=== PATIENT | male | born 1970 | race Caucasian/White ===

== ENCOUNTER → 2018-06-09 | Outpatient (CLI) | payer OTHER ==
--- NOTE | 2018-06-09 09:26 | CT ---
EXAMINATION TYPE: CT chest wo con DATE OF EXAM: 06/09/2018 COMPARISON: Chest x-ray 05/11/2014 HISTORY: Shortness of breath, difficulty breathing CT DLP: 554.4 mGycm. Automated Exposure Control for Dose Reduction was Utilized. TECHNIQUE: CT scan of the thorax is performed without IV contrast. FINDINGS: LUNGS: The lungs are remarkable for some mild basilar groundglass opacity bilaterally., there is no c oncerning parenchymal mass or nodule identified. There is no pleural effusion or pneumothorax seen. The tracheobronchial tree is patent. MEDIASTINUM: Lack of IV contrast is noted to limit evaluation for mediastinal and especially hilar ad enopathy. There are no definitive greater than 1 cm hilar or mediastinal lymph nodes. No cardiomega ly or pericardial effusion is seen. OTHER: Small hiatal hernia is present. Liver shows low attenuation possibly due to fatty infiltration . IMPRESSION: Consider hypersensitivity pneumonitis, pulmonary consult. Noncontrast exam. Additional fi ndings above.
== END | disposition home or self-care (01) ==
LOC: RADCTMAIN 07:34
DX: R06.02 Shortness of breath (principal); K44.9 Diaphragmatic hernia without obstruction or gangrene
CPT/HCPCS: 71250

== ENCOUNTER 2018-08-25 06:47 | Day surgery (SDC) | payer OTHER ==
[2018-08-22 12:53] VITALS: BMI 31.5
[~2018-08-25 06:47] MED LIST: LACTATED RINGERS 1,000 ML IV SCH
[2018-08-25] MEDS ORDERED: LACTATED RINGERS 1,000 ML IV ONE (07:07)
[2018-08-25 07:20] VITALS: TEMP 98.7
--- NOTE | 2018-08-25 07:58 | P.GSHP ---
History of Present Illness H&P Date: 08/25/18 Chief Complaint: Screening colonoscopy This is a 48-year-old male who presents today for screening colonoscopy. Patient denies any significant GI complaints. Past Medical History Past Medical History: Asthma, GERD/Reflux, Pneumonia, Sleep Apnea/CPAP/BIPAP Additional Past Medical History / Comment(s): LUNG CONDITION - GULF WAR; DEGENERATIVE DISC DISEASE, environmental allergies, hiatal hernia, rectal irritation, arthritis in back, History of Any Multi-Drug Resistant Organisms: None Reported Past Surgical History: No Surgical Hx Reported Additional Past Surgical History / Comment(s): EGD Past Anesthesia/Blood Transfusion Reactions: No Reported Reaction Smoking Status: Never smoker - Past Family History Father Family Medical History: Cancer Medications and Allergies Home Medications Medication Instructions Recorded Confirmed Type Omeprazole [PriLOSEC] 20 mg PO BID 05/11/14 08/25/18 History Budesonide-Formot 160-4.5 Mcg 2 puff INHALATION BID 08/22/18 08/25/18 History [Symbicort 160-4.5 Mcg Inhaler] Melatonin 6 mg PO HS PRN 08/22/18 08/25/18 History Multivitamins, Thera [Multivitamin 1 tab PO DAILY 08/22/18 08/25/18 History (formulary)] Naproxen 500 mg PO HS PRN 08/22/18 08/25/18 History traZODone HCL 50 - 150 mg PO HS PRN 08/22/18 08/25/18 History Allergies Allergy/AdvReac Type Severity Reaction Status Date / Time HAZELNUT Allergy Swelling Uncoded 08/25/18 07:20 Surgical - Exam Vital Signs Temp Pulse Resp BP Pulse Ox 98.7 F 103 H 14 163/112 96 08/25/18 07:14 08/25/18 07:14 08/25/18 07:14 08/25/18 07:14 08/25/18 07:14 - General well developed, well nourished, no distress - Eyes PERRL - ENT normal pinna - Neck no masses - Respiratory normal expansion - Abdomen Abdomen: soft, non tender Assessment and Plan Assessment: We'll perform screening colonoscopy.
[2018-08-25] MEDS ORDERED: LIDOCAINE 1% INJ 10MG/ML (20 ML MDV) ONE (07:59)
[2018-08-25] MEDS ORDERED: PROPOFOL 10 MG/ML 20 ML VIAL IV ONE (07:59)
--- NOTE | 2018-08-25 08:26 | P.OP ---
Date of Procedure: 08/25/18 Preoperative Diagnosis: Screening colonoscopy Postoperative Diagnosis: Rectal polyp Procedure(s) Performed: Colonoscopy Anesthesia: MAC Surgeon: Jimenez Schulte Pathology: other (Rectal polyp) Condition: stable Disposition: PACU Description of Procedure: The patient's placed on the endoscopy table in the lateral position. He received IV sedation. Digital rectal exam was performed which revealed a few internal hemorrhoids. The flexible colonoscope was then placed patient anus and passed throughout the entire colon. Ileocecal valve was visualized. The cecum, ascending colon, transverse colon appeared normal. The descending and sigmoid colon appeared normal. Scope was then brought back the rectum and there was a small sessile polyp seen this removed with a hold forcep. Scope was then brought back withdrawn through the anus and there some minimal internal hemorrhoids seen. Scope was withdrawn for patient.
[2018-08-25 08:30] VITALS: RESP 16
[2018-08-25] MEDS ORDERED: ALBUTEROL NEBULIZED 2.5 MG/3 ML INHALATION STA (08:33)
[2018-08-25 08:55] VITALS: BP 127/82; PULSE 85
== END 2018-08-25 09:24 | disposition home or self-care (01) ==
LOC: ORWHC2ENDO 06:47
PROVIDERS: ATTEND Surgery
DX: Z12.11 Encounter for screening for malignant neoplasm of colon (principal); K62.1 Rectal polyp; K64.8 Other hemorrhoids; J45.909 Unspecified asthma, uncomplicated; K21.9 Gastro-esophageal reflux disease without esophagitis; G47.33 Obstructive sleep apnea (adult) (pediatric); Z99.89 Dependence on other enabling machines and devices; F43.10 Post-traumatic stress disorder, unspecified; Z79.1 Long term (current) use of non-steroidal anti-inflammatories (NSAID); Z79.51 Long term (current) use of inhaled steroids; Z79.899 Other long term (current) drug therapy; Z91.018 Allergy to other foods
CPT/HCPCS: 94640; 88305; 45380; J2001; J2704

== ENCOUNTER 2021-11-26 11:12 | Day surgery (SDC) | payer OTHER ==
[2021-11-25 15:25] VITALS: BMI 32.4
[~2021-11-26 11:12] MED LIST changes: +ALBUTEROL NEB (CONC) 2.5 MG/0.5 ML INHALATION ONE; +ATROPINE SULFATE 0.4 MG/ML 1 ML VIAL IM ONE; +LIDOCAINE 2% (PF) 20 MG/ML 5 ML VIAL INHALATION ONE; +LIDOCAINE VISCOUS 300 MG/15 ML CUP MUCOUS MEM ONE
[2021-11-26] MEDS ORDERED: MIDAZOLAM 2 MG/2 ML VIAL ONE (12:22)
[2021-11-26] MEDS ORDERED: SUCCINYLCHOLINE CHLORIDE 100 MG/5 ML SYR IV ONE (12:22)
[2021-11-26] MEDS ORDERED: fentaNYL (PF) 50 MCG/ML 2 ML AMP ONE (12:22)
[2021-11-26] MEDS ORDERED: ONDANSETRON 4 MG/2 ML VIAL ONE (12:22)
[2021-11-26] MEDS ORDERED: PROPOFOL 10 MG/ML 20 ML VIAL IV ONE (12:22)
[2021-11-26] MEDS ORDERED: LIDOCAINE 2% INJ 20 MG/ML (2 ML VIAL) ONE (12:22)
[2021-11-26 13:04] VITALS: TEMP 97.6
--- NOTE | 2021-11-26 13:07 | FL ---
EXAMINATION TYPE: FL bronchoscopy DATE OF EXAM: 11/26/2021 CLINICAL HISTORY: Abnormal x-ray and CT. TECHNIQUE: Fluoroscopy. COMPARISON: None. FINDINGS: Fluoroscopic guidance was provided during bronchoscopy procedure performed by Dr. Aragon. A total of 72 seconds of fluoroscopic time was utilized during the procedure and 1 spot images was ac quired. Single intraoperative image shows advancement of the bronchoscope into the bronchus intermedi us and catheter advancement into the right lung base. IMPRESSION: As Above.
--- NOTE | 2021-11-26 13:25 | XR ---
EXAMINATION TYPE: XR chest 1V portable DATE OF EXAM: 11/26/2021 COMPARISON: Chest CT June 09, 2018 HISTORY: Bronchoscopy with right sided biopsy. TECHNIQUE: Single AP portable frontal upright view of the chest is obtained. FINDINGS: Low lung volumes are present. There is no focal air space opacity, pleural effusion, or pne umothorax seen. The cardiac silhouette size is within normal limits. The osseous structures are in tact. IMPRESSION: No pneumothorax after bronchoscopy and biopsy.
[2021-11-26 13:43] VITALS: RESP 18
--- NOTE | 2021-11-26 13:53 | PCN ---
PROCEDURE NOTE PULMONARY/CRITICAL CARE PROCEDURE NOTE: PROCEDURE PERFORMED: Bronchoscopy, airway examination, therapeutic lavage, BAL, brushes right lobe right lower lobe. Transbronchial biopsies right lower lobe and BAL right middle lobe. PREOP DIAGNOSES: Diffuse interstitial lung disease, shortness of breath, cough. POSTOP DIAGNOSES: Diffuse interstitial lung disease, shortness of breath, cough. DESCRIPTION OF PROCEDURE: There was informed consent and universal timeout. The patient's procedure was done in room #1. Anesthesia provided general anesthesia. After the patient was anesthetized, being fully monitored, the bronchoscope was inserted through the bronchoscope adapter connected to the endotracheal tube. We did a thorough evaluation of both lungs including right upper lobe and its 3 segments, right middle lobe and its 2 segments, right lower lobe and its 5 segments, left upper lobe and its 2 segments, lingula and its 2 segments, and left lower lobe and its 4 segments. Next, we focused primarily in the right lower lobe area. Under fluoroscopic guidance, we did brushes in the right lower lobe. Also, under fluoroscopic guidance, we did at least 8 or 9 transbronchial biopsies to the right lower lobe. Finally, we did a BAL in the right middle lobe. About 35 mL of fluid was recovered. The patient tolerated the procedure well. There was minimal bleeding and blood loss. The biopsies and other specimens will be sent to the laboratory for analysis. The patient tolerated the procedure well. The patient was stable throughout the procedure. There was no immediate complication. There was no obvious pneumothorax on fluoro. A formal chest x-ray will be ordered. Before the bronchoscope was removed from the airway, we ensured that there was adequate hemostasis. Finally, the bronchoscope was removed, and the patient will be recovered. Again, the patient was stable throughout the entire procedure. I did have a chance to speak to the patient's father. MMODL / IJN: [id number] /
[2021-11-26 14:00] VITALS: BP 113/79; PULSE 80
== END 2021-11-26 14:18 | disposition home or self-care (01) ==
LOC: ORWHC2ENDO 11:12
PROVIDERS: ATTEND Internal Medicine Critical Care Medicine
DX: J84.89 Other specified interstitial pulmonary diseases (principal); J45.909 Unspecified asthma, uncomplicated; Z79.51 Long term (current) use of inhaled steroids; I10 Essential (primary) hypertension; Z86.16 Personal history of COVID-19; K21.9 Gastro-esophageal reflux disease without esophagitis; G47.30 Sleep apnea, unspecified; F41.9 Anxiety disorder, unspecified
CPT/HCPCS: 31628; 88104; 88108; 88305; 71045; 31625; 31623; 31624; J2250; J2405; J3010; J0330; J2704; J2001; 31622

== ENCOUNTER 2023-05-09 14:14 | Day surgery (SDC) | payer BC, OTHER ==
[2023-05-06 08:48] VITALS: BMI 30.8
[~2023-05-09 14:14] MED LIST changes: -ALBUTEROL NEB (CONC) 2.5 MG/0.5 ML INHALATION ONE; -ATROPINE SULFATE 0.4 MG/ML 1 ML VIAL IM ONE; -LACTATED RINGERS 1,000 ML IV SCH; +LIDOCAINE 1% (10MG/ML) FOR IV START INTRADERMA PRN; -LIDOCAINE 2% (PF) 20 MG/ML 5 ML VIAL INHALATION ONE; -LIDOCAINE VISCOUS 300 MG/15 ML CUP MUCOUS MEM ONE
[2023-05-09 14:49] VITALS: RESP 16; TEMP 98.3
[2023-05-09] MEDS: LACTATED RINGERS 1,000 ML IV SCH ×2 (14:52→15:49)
--- NOTE | 2023-05-09 15:04 | P.GSHP ---
History of Present Illness H&P Date: 05/09/23 Chief Complaint: Nausea, abdominal pain, diarrhea This a 53-year-old female who presents today for EGD and colonoscopy. Patient complaints of nausea, vomiting and diarrhea. Past Medical History Past Medical History: Asthma, GERD/Reflux, Hypertension, Pneumonia, Sleep Apnea/CPAP/BIPAP Additional Past Medical History / Comment(s): Lung Condition - in [place]; hx anemia., DDD, NT hands/feet often, environmental allergies, hiatal hernia, rectal irritation, arthritis in back, uses CPAP. Hx Covid x3, tinnitus History of Any Multi-Drug Resistant Organisms: None Reported Past Surgical History: No Surgical Hx Reported Additional Past Surgical History / Comment(s): EGD, Colonoscopy Past Anesthesia/Blood Transfusion Reactions: No Reported Reaction Past Psychological History: Anxiety, Depression, PTSD Smoking Status: Never smoker Past Alcohol Use History: Daily Additional Past Alcohol Use History / Comment(s): drinks a couple beers daily and has been drinking whiskey also. Past Drug Use History: None Reported - Past Family History Father Family Medical History: Cancer Additional Family Medical History / Comment(s): pancreas cancer; skin cancer Medications and Allergies Home Medications Medication Instructions Recorded Confirmed Type Omeprazole 40 mg PO DAILY 05/06/23 05/06/23 History amLODIPine [Norvasc] 5 mg PO DAILY 05/06/23 05/06/23 History Allergies Allergy/AdvReac Type Severity Reaction Status Date / Time HAZELNUT Allergy Swelling Uncoded 05/09/23 14:32 Surgical - Exam Vital Signs Temp Pulse Resp BP Pulse Ox 98.3 F 97 16 155/92 96 05/09/23 14:38 05/09/23 14:38 05/09/23 14:38 05/09/23 14:38 05/09/23 14:38 - General well developed, well nourished, no distress - Eyes PERRL - ENT normal pinna - Neck no masses - Respiratory normal expansion - Cardiovascular Rhythm: regular - Abdomen Abdomen: soft, non tender Assessment and Plan Assessment: Nausea, vomiting, diarrhea. We'll perform EGD and colonoscopy.
[2023-05-09] MEDS ORDERED: PROPOFOL 10 MG/ML 20 ML VIAL IV ONE (15:47)
[2023-05-09] MEDS ORDERED: LIDOCAINE 1% INJ 10MG/ML (20 ML MDV) ONE (15:47)
--- NOTE | 2023-05-09 16:06 | P.OP ---
Date of Procedure: 05/09/23 Preoperative Diagnosis: GERD Postoperative Diagnosis: Antral gastritis Sliding hiatal hernia Esophagitis Procedure(s) Performed: EGD Anesthesia: MAC Surgeon: Jimenez Schulte Pathology: other (Antrum, esophagus) Condition: stable Disposition: PACU Description of Procedure: The patient's placed on the endoscopy table in the lateral position. He received IV sedation. The gastro-/oropharynx passed in the esophagus and stomach. Scope was then placed through the pylorus. The first and second portion of the duodenum appeared normal. Scope was then brought back the antrum and this was mildly inflamed. A biopsies performed. Scope was unretroflexed and remainder the stomach appeared normal. The patient had a moderate size sliding hiatal hernia. GE junction was at 38 cm. The distal esophagus appears minimal inflamed. A biopsies performed. The proximal esophagus appeared normal. Scope withdrawn for patient.
[2023-05-09 16:25] VITALS: BP 123/76; PULSE 86
== END 2023-05-09 16:38 | disposition home or self-care (01) ==
LOC: ORWHC2ENDO 14:14
PROVIDERS: ATTEND Surgery
DX: K31.89 Other diseases of stomach and duodenum (principal); K21.00 Gastro-esophageal reflux disease with esophagitis, without bleeding; K29.50 Unspecified chronic gastritis without bleeding; K44.9 Diaphragmatic hernia without obstruction or gangrene; J45.909 Unspecified asthma, uncomplicated; I10 Essential (primary) hypertension; J18.9 Pneumonia, unspecified organism; G47.33 Obstructive sleep apnea (adult) (pediatric); Z86.16 Personal history of COVID-19; F43.10 Post-traumatic stress disorder, unspecified; F32.A Depression, unspecified; F10.90 Alcohol use, unspecified, uncomplicated; Z80.0 Family history of malignant neoplasm of digestive organs; Z80.8 Family history of malignant neoplasm of other organs or systems; Z91.018 Allergy to other foods; Z79.899 Other long term (current) drug therapy
CPT/HCPCS: 88305; 43239; J2001; J2704

== ENCOUNTER 2023-06-06 15:03 | Emergency (ER) | payer BC, OTHER ==
--- NOTE | 2023-06-06 15:49 | ED ---
ENT HPI - General Chief complaint: ENT Stated complaint: left ear pain Time Seen by Provider: 06/06/23 15:23 Source: patient, RN notes reviewed Mode of arrival: ambulatory Limitations: no limitations - History of Present Illness Initial comments: Patient is a 53-year-old male presented ER with chief complaint of left ear pain and drainage. Patient states he stuck a Q-tip in his ear to clean his ears about 5 days ago and saw bright red blood. Patient was seen at urgent care yesterday and prescribed Ciprodex drops, Toradol, and Bactrim. Patient states he has started the Bactrim and Toradol and has not yet started the Ciprodex drops. Patient denies any mastoid tenderness or sinus tenderness. Patient denies any fevers, chills, night sweats. - Related Data Home Medications Medication Instructions Recorded Confirmed Omeprazole 40 mg PO DAILY 05/06/23 05/06/23 amLODIPine [Norvasc] 5 mg PO DAILY 05/06/23 05/06/23 Allergies Allergy/AdvReac Type Severity Reaction Status Date / Time HAZELNUT Allergy Swelling Uncoded 05/09/23 14:32 Review of Systems ROS Statement: Those systems with pertinent positive or pertinent negative responses have been documented in the HPI. ROS Other: All systems not noted in ROS Statement are negative. Past Medical History Past Medical History: Asthma, GERD/Reflux, Hypertension, Pneumonia, Sleep Apnea/CPAP/BIPAP Additional Past Medical History / Comment(s): Lung Condition - in [place]; hx anemia., DDD, NT hands/feet often, environmental allergies, hiatal hernia, rectal irritation, arthritis in back, uses CPAP. Hx Covid x3, tinnitus History of Any Multi-Drug Resistant Organisms: None Reported Past Surgical History: No Surgical Hx Reported Additional Past Surgical History / Comment(s): EGD, Colonoscopy Past Anesthesia/Blood Transfusion Reactions: No Reported Reaction Past Psychological History: Anxiety, Depression, PTSD Smoking Status: Never smoker Past Alcohol Use History: Daily Past Drug Use History: None Reported - Past Family History Father Family Medical History: Cancer Additional Family Medical History / Comment(s): pancreas cancer; skin cancer General Exam Limitations: no limitations General appearance: alert, in no apparent distress ENT exam: Present: normal oropharynx, mucous membranes moist, TM's normal bilaterally (Right is normal, left is unable to be seen due to swelling of the ear canal. purlent drainage in left ear canal, no mastoid process tenderness) Neck exam: Present: normal inspection. Absent: tenderness, meningismus, lymphadenopathy Respiratory exam: Present: normal lung sounds bilaterally. Absent: respiratory distress, wheezes, rales, rhonchi, stridor Cardiovascular Exam: Present: regular rate, normal rhythm, normal heart sounds. Absent: systolic murmur, diastolic murmur, rubs, gallop, clicks Neurological exam: Present: alert, oriented X3, CN II-XII intact Psychiatric exam: Present: normal affect, normal mood Skin exam: Present: warm, dry, intact, normal color. Absent: rash Course Vital Signs 06/06/23 06/06/23 15:19 15:33 Temperature 98.6 F 98.9 F Pulse Rate 97 98 Respiratory 20 Rate Blood Pressure 147/105 146/106 O2 Sat by Pulse 97 97 Oximetry Medical Decision Making - Medical Decision Making Was pt. sent in by a medical professional or institution (, PA, MICROFILM TECHNICIAN, urgent care, hospital, or half-way...) When possible be specific @ -No Did you speak to anyone other than the patient for history (EMS, parent, family, police, friend...)? What history was obtained from this source @ -No Did you review nursing and triage notes (agree or disagree)? Why? @ -I reviewed and agree with nursing and triage notes Were old charts reviewed (outside hosp., previous admission, EMS record, old EKG, old radiological studies, urgent care reports/EKG's, half-way records)? Report findings @ -No old charts were reviewed Differential Diagnosis (chest pain, altered mental status, abdominal pain women, abdominal pain men, vaginal bleeding, weakness, fever, dyspnea, syncope, headache, dizziness, GI bleed, back pain, seizure, CVA, palpatations, mental health, musculoskeletal)? @ -Otitis media, otitis externa, mastoiditis, foreign body, perforated tympanic membrane EKG interpreted by me (3pts min.). @ -None X-rays interpreted by me (1pt min.). @ -None done CT interpreted by me (1pt min.). @ -None done U/S interpreted by me (1pt. min.). @ -None done What testing was considered but not performed or refused? (CT, X-rays, U/S, labs)? Why? @ -None What meds were considered but not given or refused? Why? @ -None Did you discuss the management of the patient with other professionals (professionals i.e. , PA, MICROFILM TECHNICIAN, lab, RT, psych nurse, social and political studies professor, grommet worker, teacher, environmental compliance officer, consumer lending manager)? Give summary @ -No Was smoking cessation discussed for >3mins.? @ -No Was critical care preformed (if so, how long)? @ -No Were there social determinants of health that impacted care today? How? (Homelessness, low income, unemployed, alcoholism, drug addiction, transportation, low edu. Level, literacy, decrease access to med. care, longterm, rehab)? @ -No Was there de-escalation of care discussed even if they declined (Discuss DNR or withdrawal of care, Hospice)? DNR status @ -No What co-morbidities impacted this encounter? (DM, HTN, Smoking, COPD, CAD, Cancer, CVA, ARF, Chemo, Hep., AIDS, mental health diagnosis, sleep apnea, morbid obesity)? @ -None Was patient admitted / discharged? Hospital course, mention meds given and route, prescriptions, significant lab abnormalities, going to OR and other pertinent info. @ -Discharge. Patient is a 53-year-old male presenting to the ER with chief complaint of left ear pain and drainage. Upon examination, patient's vitals are stable. Physical exam was significant for left ear canal erythematous and edematous. There was a white purulent drainage noted in the ear canal. Tympanic membrane was not visualized due to swelling and drainage. No mastoid process tenderness. I discussed with patient that he should start the Ciprodex drops prescribed by urgent care and continued taking Toradol for pain control. I also educated patient on the dangers of using Q-tips in the ear canal. I advised patient to follow-up with ENT if symptoms do not improve. I discussed with patient return parameters. Patient will be discharged in stable condition with follow-up to PCP/ENT. Patient expressed understanding and agreement with care plan. Undiagnosed new problem with uncertain prognosis? @ -No Drug Therapy requiring intensive monitoring for toxicity (Heparin, Nitro, Insulin, Cardizem)? @ -No Were any procedures done? @ -No Diagnosis/symptom? @ -Left otitis externa Acute, or Chronic, or Acute on Chronic? @ -Acute Uncomplicated (without systemic symptoms) or Complicated (systemic symptoms)? @ -Uncomplicated Side effects of treatment? @ -No Exacerbation, Progression, or Severe Exacerbation? @ -No Poses a threat to life or bodily function? How? (Chest pain, [place], [place], pneumonia, PE, COPD, DKA, ARF, appy, cholecystitis, CVA, Diverticulitis, Homicidal, Suicidal, threat to staff... and all critical care pts) @ -Unlikely Disposition Clinical Impression: Otitis externa Disposition: HOME SELF-CARE Condition: Stable Additional Instructions: Please continue Toradol for pain. Please start Ciprodex 4 drops in left ear twice daily. Please return to the Emergency Department if symptoms worsen or any other concerns. Is patient prescribed a controlled substance at d/c from ED?: No Referrals: Justino Medina MD [Primary Care Provider] - 1-2 days Keaton Gamez DO [Doctor of Osteopathic Medicine] - 1-2 days Time of Disposition: 15:49
[2023-06-06 16:06] VITALS: BP 146/106; PULSE 98; RESP 20; TEMP 98.9
== END 2023-06-06 16:05 | disposition home or self-care (01) ==
LOC: EC 15:03
DX: H60.92 Unspecified otitis externa, left ear (principal); I10 Essential (primary) hypertension; J45.909 Unspecified asthma, uncomplicated; K21.9 Gastro-esophageal reflux disease without esophagitis; Z79.899 Other long term (current) drug therapy; Z91.018 Allergy to other foods; Z86.16 Personal history of COVID-19
CPT/HCPCS: 99282

== ENCOUNTER → 2023-09-19 | Outpatient (CLI) | payer BC ==
--- NOTE | 2023-09-19 18:44 | MR ---
MRI brain without contrast. HISTORY: Headaches, blurry vision, dizziness and lightheadedness. COMPARISON: None. TECHNIQUE: Multiecho multiplanar images the brain were obtained without contrast. FINDINGS: On the T1-weighted sagittal images, the midline structures including the craniovertebral junction rel ationships are normal. The ventricles, basal cisterns and sulci over the convexities are within normal limits and there is n o mass effect or shift of the midline structures. No abnormal signal intensity is seen throughout the brain parenchyma. Based on the diffusion-weighted images, there is no diffusion restriction or acute ischemic event. The posterior fossa including the brainstem, fourth ventricle and cerebellar pontine angles appear no rmal. The intraorbital contents appear normal and symmetric. Visualized paranasal sinuses and mastoid air c ells are well aerated. IMPRESSION: No significant abnormality seen.
--- NOTE | 2023-09-19 23:28 | US ---
EXAMINATION TYPE: US carotid duplex BILAT DATE OF EXAM: 09/19/2023 COMPARISON: NONE CLINICAL INDICATION: Male, 53 years old with history of H53.2 DIPLOPIA; Blurred vision, Bilateral fee t and hand numbness, bilateral feet swelling, and EUGENE; Hx HTN. TECHNIQUE: Carotid duplex ultrasound examination. Indirect Doppler criteria was utilized. FINDINGS: EXAM MEASUREMENTS: RIGHT: Peak Systolic Velocity (PSV) cm/sec ----- Right CCA: 62 ----- Right ICA: 90 ----- Right ECA: 61 ICA/CCA ratio: 1.5 RIGHT: End Diastole cm/sec ----- Right CCA: 17 ----- Right ICA: 25 ----- Right ECA: 22 LEFT: Peak Systolic Velocity (PSV) cm/sec ----- Left CCA: 64 ----- Left ICA: 85 ----- Left ECA: 86 ICA/CCA ratio: 1.3 LEFT: End Diastole cm/sec ----- Left CCA: 22 ----- Left ICA: 37 ----- Left ECA: 86 VERTEBRALS (direction of flow): Right Vertebral: Antegrade Left Vertebral: Antegrade Rhythm: Normal KETTLE OPERATOR HEAD NOTES: No intimal thickening, plaque, or elevated velocities seen. High bifurcation with tortuous vessels bilaterally. IMPRESSION: 1. No significant flow-limiting stenosis. Criteria for Assigning % of Stenosis / Diameter reduction (Estimation based on the indirect measurements of the internal carotid artery velocities (ICA PSV). 1. Normal (no stenosis)=ICA PSV < 125 cm/s: ratio < 2.0: ICA EDV<40 cm/s. 2. Less than 50% stenosis=ICA PSV < 125 cm/s: ratio < 2.0: ICA EDV<40 cm/s. 3. 50 to 69% stenosis=ICA PSV of 125 to 230 cm/s: ration 2.0 ? 4.0: ICA EDV 40-100 cm/s. 4. Greater than 70% stenosis to near occlusion= ICA PSV > 230 cm/s: ratio > 4.0: ICA EDV > 100 cm/s. 5. Near occlusion= ICA PSV velocities may be low or undetectable: variable ratio and ICA EDV. 6. Total occlusion=unable to detect flow.
== END | disposition home or self-care (01) ==
LOC: RADUSWWP 16:07
PROVIDERS: ATTEND Family Medicine
DX: H53.2 Diplopia (principal); H53.8 Other visual disturbances; I10 Essential (primary) hypertension; M79.89 Other specified soft tissue disorders; R20.0 Anesthesia of skin; R51.9 Headache, unspecified; R42 Dizziness and giddiness
CPT/HCPCS: 70551; 93880

== ENCOUNTER 2023-11-07 13:59 | Emergency (ER) | payer BC ==
--- NOTE | 2023-11-07 14:38 | ED ---
Abdominal Pain HPI - General Chief Complaint: Abdominal Pain Stated Complaint: R Side Pain Time Seen by Provider: 11/07/23 14:15 Source: patient, RN notes reviewed, old records reviewed Mode of arrival: ambulatory Limitations: no limitations - History of Present Illness Initial Comments: This is a 53-year-old male to the ER for evaluation today. This patient presents today for evaluation regards to abdominal pain severe abdominal pain right-sided abdominal pain right-sided flank pain severe history of kidney stones this does not feel like that history of recently taking gallbladder cleansing pills as well as liver cleansing pills which he thinks may be causing him pain he just super nervous. Patient has no other complaints no chest pain shortness of breath abdominal pain otherwise, no abdominal tenderness. No fevers MD Complaint: abdominal pain, flank pain (Right-sided) -: hour(s) Location: RUQ, R flank Radiation: RUQ, R flank Migration to: no migration Severity scale (1-10): 6 Quality: fullness, sharp Consistency: constant Improves With: nothing Worsens With: nothing Associated Symptoms: nausea Treatments Prior to Arrival: other (0) - Related Data Home Medications Medication Instructions Recorded Confirmed Omeprazole 40 mg PO DAILY 05/06/23 05/06/23 amLODIPine [Norvasc] 5 mg PO DAILY 05/06/23 05/06/23 Previous Rx's Medication Instructions Recorded Azithromycin [Zithromax Z Pack] 0 tab PO DIRECTED #6 tab 11/09/23 Cyclobenzaprine [Flexeril] 10 mg PO TID PRN #15 tab 11/09/23 HYDROcodone/APAP 7.5-325MG [[place] 1 tab PO Q6HR PRN 3 Days #12 tab 11/09/23 7.5-325] predniSONE 50 mg PO DAILY #5 tab 11/09/23 Allergies Allergy/AdvReac Type Severity Reaction Status Date / Time [place] Allergy Swelling Uncoded 05/09/23 14:32 Review of Systems ROS Statement: Those systems with pertinent positive or pertinent negative responses have been documented in the HPI. ROS Other: All systems not noted in ROS Statement are negative. Past Medical History Past Medical History: Asthma, GERD/Reflux, Hypertension, Pneumonia, Sleep Apnea/CPAP/BIPAP Additional Past Medical History / Comment(s): Lung Condition - in [place]; hx anemia., DDD, NT hands/feet often, environmental allergies, hiatal hernia, rectal irritation, arthritis in back, uses CPAP. Hx Covid x3, tinnitus History of Any Multi-Drug Resistant Organisms: None Reported Past Surgical History: No Surgical Hx Reported Additional Past Surgical History / Comment(s): EGD, Colonoscopy Past Anesthesia/Blood Transfusion Reactions: No Reported Reaction Past Psychological History: Anxiety, Depression, PTSD Smoking Status: Never smoker Past Alcohol Use History: Daily Past Drug Use History: None Reported - Past Family History Father Family Medical History: Cancer Additional Family Medical History / Comment(s): pancreas cancer; skin cancer General Exam Limitations: no limitations General appearance: alert, in no apparent distress Head exam: Present: atraumatic, normocephalic, normal inspection Eye exam: Present: normal appearance, PERRL, EOMI. Absent: scleral icterus, conjunctival injection, periorbital swelling ENT exam: Present: normal exam, mucous membranes moist Neck exam: Present: normal inspection. Absent: tenderness, meningismus, lymphadenopathy Respiratory exam: Present: normal lung sounds bilaterally. Absent: respiratory distress, wheezes, rales, rhonchi, stridor Cardiovascular Exam: Present: regular rate, normal rhythm, normal heart sounds. Absent: systolic murmur, diastolic murmur, rubs, gallop, clicks GI/Abdominal exam: Present: soft, normal bowel sounds. Absent: distended, te nderness, guarding, rebound, rigid Extremities exam: Present: normal inspection, full ROM, normal capillary refill. Absent: tenderness, pedal edema, joint swelling, calf tenderness Back exam: Present: normal inspection Neurological exam: Present: alert, oriented X3, CN II-XII intact Psychiatric exam: Present: normal affect, normal mood Skin exam: Present: warm, dry, intact, normal color. Absent: rash Course Vital Signs 11/07/23 11/07/23 11/07/23 14:01 16:14 18:07 Temperature 97.8 F 98.1 F 97.7 F Pulse Rate 86 84 77 Respiratory 16 18 18 Rate Blood Pressure 150/98 135/96 165/109 O2 Sat by Pulse 97 96 97 Oximetry - Reevaluation(s) Reevaluation #1: 11/07/23 17:44 Medical records reviewed Reevaluation #2: 11/07/23 17:44 Patient symptoms unchanged Reevaluation #3: 11/07/23 17:44 Patient informed of results and questions answered Reevaluation #4: Was pt. sent in by a medical professional or institution (, [facility], FIRE REGULATOR, urgent care, hospital, or group home...) When possible be specific @ -no Did you speak to anyone other than the patient for history (EMS, parent, family, police, friend...)? What history was obtained from this source @ -no Did you review nursing and triage notes (agree or disagree)? Why? @ -agree Are old charts reviewed (outside hosp., previous admission, EMS record, old EKG, old radiological studies, urgent care reports/EKG's, group home records)? Report findings @ -yes Differential Diagnosis (chest pain, altered mental status, abdominal pain women, abdominal pain men, vaginal bleeding, weakness, fever, dyspnea, syncope, headache, dizziness, GI bleed, back pain, seizure, CVA, palpatations, mental health, musculoskeletal)? @ -prior EKG interpreted by me (3pts min.). @ -no X-rays interpreted by me (1pt min.). @ -no CT interpreted by me (1pt min.). @ -yes negative for acute disease U/S interpreted by me (1pt. min.). @ -no What testing was considered but not performed or refused? (CT, X-rays, U/S, labs)? Why? @ -none What meds were considered but not given or refused? Why? @ -none Did you discuss the management of the patient with other professionals (professionals i.e. [facility]ANDRIKA Bowman, FIRE REGULATOR, lab, RT, psych nurse, social worker delinquency prevention, compound mixer, teacher, water resources technical officer, case finisher)? Give summary @ -no Was smoking cessation discussed for >3mins.? @ -no Was critical care preformed (if so, how long)? @ -no Were there social determinants of health that impacted care today? How? (Homelessness, low income, unemployed, alcoholism, drug addiction, transportation, low edu. Level, literacy, decrease access to med. care, long-term, rehab)? @ -none Was there de-escalation of care discussed even if they declined (Discuss DNR or withdrawal of care, Hospice)? DNR status @ -no What co-morbidities impacted this encounter? (DM, HTN, Smoking, COPD, CAD, Cancer, CVA, ARF, Chemo, Hep., AIDS, mental health diagnosis, sleep apnea, morbid obesity)? @ -none Was patient admitted / discharged? Hospital course, mention meds given and route, prescriptions, significant lab abnormalities, going to OR and other pertinent info. @ - 53 male nonspecific pain unknown abdominal pain cause. Patient be given pain control and can be discharged home Discharge Undiagnosed new problem with uncertain prognosis? @ -no Drug Therapy requiring intensive monitoring for toxicity (Heparin, Nitro, Insulin, Cardizem)? @ -no Were any procedures done? @ -no Diagnosis/symptom? @ -Abdominal pain NOS Acute, or Chronic, or Acute on Chronic? @ -Acute Uncomplicated (without systemic symptoms) or Complicated (systemic symptoms)? @ -Complicated Side effects of treatment? @ -no Exacerbation, Progression, or Severe Exacerbation? @ -exacerbation Poses a threat to life or bodily function? How? (Chest pain, [place], [place], pneumonia, PE, COPD, DKA, ARF, appy, cholecystitis, CVA, Diverticulitis, Homicidal, Suicidal, threat to staff... and all critical care pts) @ -no Reevaluation #5: Differential Abdominal Pain Men: Appendicitis, cholecystitis, diverticulosis, ischemic bowel, pancreatitis, hepatitis, UTI, gastroenteritis, AAA, incarcerated hernia, bowel obstruction, constipation, inflammatory bowel, hepatitis, peptic ulcer disease, splenic infarction, perforated viscus, testicular torsion, this is not meant to be an all-inclusive list Medical Decision Making - Medical Decision Making 53 male nonspecific pain unknown abdominal pain cause. Patient be given pain control and can be discharged home - Lab Data Result diagrams: 11/07/23 14:46 11/07/23 14:46 Lab Results 11/07/23 11/07/23 11/07/23 Range/Units 14:45 14:46 14:46 WBC 7.2 (3.8-10.6) k/uL RBC 4.70 (4.30-5.90) m/uL Hgb 14.1 (13.0-17.5) gm/dL Hct 44.0 (39.0-53.0) % MCV 93.8 (80.0-100.0) fL MCH 30.0 (25.0-35.0) pg MCHC 31.9 (31.0-37.0) g/dL RDW 12.8 (11.5-15.5) % Plt Count 300 (150-450) k/uL MPV 7.3 Neutrophils % 68 % Lymphocytes % 20 % Monocytes % 7 % Eosinophils % 2 % Basophils % 1 % Neutrophils # 4.9 (1.3-7.7) k/uL Lymphocytes # 1.5 (1.0-4.8) k/uL Monocytes # 0.5 (0-1.0) k/uL Eosinophils # 0.1 (0-0.7) k/uL Basophils # 0.1 (0-0.2) k/uL Sodium 138 (137-145) mmol/L Potassium 4.3 (3.5-5.1) mmol/L Chloride 108 H (98-107) mmol/L Carbon Dioxide 23 (22-30) mmol/L Anion Gap 7 mmol/L BUN 11 (9-20) mg/dL Creatinine 0.77 (0.66-1.25) mg/dL Est GFR (CKD-EPI)AfAm >90 (>60 ml/min/1.73 sqM) Est GFR (CKD-EPI)NonAf >90 (>60 ml/min/1.73 sqM) Glucose 109 H (74-99) mg/dL Calcium 9.5 (8.4-10.2) mg/dL Total Bilirubin 0.7 (0.2-1.3) mg/dL AST 31 (17-59) U/L ALT 48 (4-49) U/L Alkaline Phosphatase 72 (38-126) U/L Total Protein 7.2 (6.3-8.2) g/dL Albumin 4.3 (3.5-5.0) g/dL Amylase 65 (30-110) U/L Lipase 192 (23-300) U/L Urine Color Yellow Urine Appearance Clear (Clear) Urine pH 7.0 (5.0-8.0) Ur Specific Leon 1.024 (1.001-1.035) Urine Protein Negative (Negative) Urine Glucose (UA) Negative (Negative) Urine Ketones Negative (Negative) Urine Blood Negative (Negative) Urine Nitrite Negative (Negative) Urine Bilirubin Negative (Negative) Urine Urobilinogen <2.0 (<2.0) mg/dL Ur Leukocyte Esterase Negative (Negative) - Radiology Data Radiology results: report reviewed (CT of the abdomen and pelvis negative for acute disease), image reviewed Disposition Clinical Impression: Abdominal pain Disposition: HOME SELF-CARE Condition: Good Instructions (If sedation given, give patient instructions): Abdominal Pain (ED) Is patient prescribed a controlled substance at d/c from ED?: No Referrals: Justino Medina MD [Primary Care Provider] - 1-2 days Time of Disposition: 17:45
[2023-11-07] MEDS: SODIUM CHLORIDE 0.9% 1,000 ML IV STA (14:49)
[2023-11-07] MEDS: KETOROLAC 15 MG/ML 1 ML VIAL IVP STA (14:50)
[2023-11-07 14:52] LABS: Basophils # (A) 0.1 k/uL (0-0.2); Basophils % (A) 1 %; Eosinophils # (A) 0.1 k/uL (0-0.7); Eosinophils % (A) 2 %; HGB 14.1 gm/dL (13.0-17.5); Lymphocytes # (A) 1.5 k/uL (1.0-4.8); Lymphocytes % (A) 20 %; MCHC 31.9 g/dL (31.0-37.0); MCV 93.8 fL (80.0-100.0); Mean Platelet Volume 7.3; Monocytes # (A) 0.5 k/uL (0-1.0); Monocytes % (A) 7 %; Neutrophils # (A) 4.9 k/uL (1.3-7.7); Neutrophils % (A) 68 %; Platelet Count 300 k/uL (150-450); RDW 12.8 % (11.5-15.5); WBC 7.2 k/uL (3.8-10.6)
[2023-11-07 15:08] LABS: ALT 48 U/L (4-49); AST 31 U/L (17-59); African American GFR (CKD) >90 (>60 ml/min/1.73 sqM); Albumin 4.3 g/dL (3.5-5.0); Alkaline Phosphatase 72 U/L (38-126); Amylase 65 U/L (30-110); Anion Gap 7 mmol/L; Blood Urea Nitrogen 11 mg/dL (9-20); Calcium 9.5 mg/dL (8.4-10.2); Carbon Dioxide 23 mmol/L (22-30); Chloride 108 mmol/L (98-107); Glucose 109 mg/dL (74-99); Lipase 192 U/L (23-300); Non-African American GFR(CKD) >90 (>60 ml/min/1.73 sqM); Potassium 4.3 mmol/L (3.5-5.1); Sodium 138 mmol/L (137-145); Total Bilirubin 0.7 mg/dL (0.2-1.3); Total Protein 7.2 g/dL (6.3-8.2)
[2023-11-07] MEDS: HYDROmorphone 1 MG/ML 1 ML SYRINGE IVP STA (15:15)
[2023-11-07 16:33] VITALS: RESP 18
--- NOTE | 2023-11-07 17:23 | CT ---
EXAMINATION TYPE: CT abdomen pelvis wo con CT DLP: 1110.7 mGycm, Automated exposure control for dose reduction was used. DATE OF EXAM: 11/07/2023 4:59 PM COMPARISON: 08/17/2010 CLINICAL INDICATION:Male, 53 years old with history of pain; right sided abdominal pain TECHNIQUE: Axial CT abdomen pelvis wo con;Sagittal and coronal reformats were created on a separate workstation. Contrast used: mL of , (none if empty) Oral contrast used: without Oral Contrast (none if empty) FINDINGS: LOWER CHEST: Unremarkable ABDOMEN LIVER: Diffusely hypoattenuating parenchyma. GALLBLADDER AND BILE DUCTS: Unremarkable. PANCREAS: Unremarkable. SPLEEN: Unremarkable. ADRENAL GLANDS: Unremarkable. KIDNEYS AND URETERS: Nonobstructing right 3 mm calculus. No left renal calculi. No left renal calculi or left hydronephrosis. PELVIS BLADDER: High density urine is seen within the bladder lumen. REPRODUCTIVE: Prostate is enlarged in size measuring 4.8 cm in transverse dimension. ABDOMEN & PELVIS STOMACH AND BOWEL: Moderate hiatal hernia. No evidence of bowel obstruction. The appendix is visualized and normal. PERITONEUM/RETROPERITONEUM: No evidence of pneumoperitoneum or free fluid. VASCULATURE: No evidence of aortic aneurysm. MUSCULOSKELETAL: No acute osseous abnormalities LYMPH NODES: No gross evidence for lymphadenopathy. SOFT TISSUE/ABDOMINAL WALL: Bilateral fatty changes to the inguinal canals. Fat-containing umbilical hernia. IMPRESSION: 1. High density material in the bladder lumen correlate with urinalysis. Findings could represent bl ood products. No other acute right-sided process identified. 2. Right nonobstructing renal calculus. 3. Prostatomegaly correlate serum PSA. 4. Bilateral fatty changes to the inguinal canals. 5. Hepatic steatosis 6. Moderate hiatal hernia.
[2023-11-07] MEDS: traMADol 50 MG TAB PO STA (18:05)
[2023-11-07] MEDS: traMADol 50 MG STARTER PACK 3 TAB BTL PO STA (18:06)
[2023-11-07] MEDS: ONDANSETRON 4 MG ODT STARTER PACK 2 TAB BTL PO STA (18:06)
[2023-11-07] MEDS ORDERED: HYDROmorphone 1 MG/ML 1 ML SYRINGE IVP STA (18:14)
[2023-11-07 18:29] LABS: Appearance,Urine Clear (Clear); Bilirubin,Urine Negative (Negative); Blood,Urine Negative (Negative); Color,Urine Yellow; Glucose,Urine (UA) Negative (Negative); Ketones,Urine Negative (Negative); Leukocyte Esterase,Urine Negative (Negative); Nitrite,Urine Negative (Negative); Protein,Urine Negative (Negative); Specific Gravity,Urine 1.024 (1.001-1.035); Urobilinogen,Urine <2.0 mg/dL (<2.0)
[2023-11-07 18:38] VITALS: BP 165/109; PULSE 77; TEMP 97.7
== END 2023-11-07 18:18 | disposition home or self-care (01) ==
LOC: EC 13:59
DX: R10.9 Unspecified abdominal pain (principal); Z91.018 Allergy to other foods
CPT/HCPCS: 36415; 80053; 82150; 83690; 85025; 81003; 74176; 99284; 96374; 96375; 96361; J1170; J1885; S0119

== ENCOUNTER 2023-11-09 08:03 | Emergency (ER) | payer BC ==
[2023-11-09] MEDS: HYDROmorphone 0.5 MG/0.5 ML SYRINGE IVP STA ×2 (08:26→09:15)
[2023-11-09] MEDS: KETOROLAC 15 MG/ML 1 ML VIAL IVP STA (08:30)
[2023-11-09] MEDS: ONDANSETRON 4 MG/2 ML VIAL IVP STA (08:30)
[2023-11-09] MEDS: IPRATROPIUM-ALBUTEROL 3 ML NEB INHALATION STA (08:34)
[2023-11-09] MEDS: ORPHENADRINE 30 MG/ML 2 ML VIAL IVP STA (08:34)
[2023-11-09 08:53] LABS: ALT 41 U/L (4-49); AST 27 U/L (17-59); African American GFR (CKD) >90 (>60 ml/min/1.73 sqM); Albumin 4.4 g/dL (3.5-5.0); Alkaline Phosphatase 80 U/L (38-126); Anion Gap 7 mmol/L; Blood Urea Nitrogen 10 mg/dL (9-20); Calcium 9.8 mg/dL (8.4-10.2); Carbon Dioxide 26 mmol/L (22-30); Chloride 104 mmol/L (98-107); Glucose 125 mg/dL (74-99); Lipase 83 U/L (23-300); Non-African American GFR(CKD) >90 (>60 ml/min/1.73 sqM); Potassium 4.3 mmol/L (3.5-5.1); Sodium 137 mmol/L (137-145); Total Protein 7.3 g/dL (6.3-8.2)
[2023-11-09 08:57] VITALS: RESP 18; TEMP 98.3
[2023-11-09 09:02] LABS: Basophils % (A) 0 %; Eosinophils # (A) 0.1 k/uL (0-0.7); Eosinophils % (A) 2 %; HCT 42.7 % (39.0-53.0); HGB 13.8 gm/dL (13.0-17.5); Lymphocytes # (A) 1.5 k/uL (1.0-4.8); Lymphocytes % (A) 19 %; MCH 30.4 pg (25.0-35.0); MCHC 32.4 g/dL (31.0-37.0); Mean Platelet Volume 7.6; Monocytes # (A) 0.6 k/uL (0-1.0); Monocytes % (A) 8 %; Neutrophils # (A) 5.3 k/uL (1.3-7.7); Neutrophils % (A) 69 %; Platelet Count 313 k/uL (150-450); RBC 4.54 m/uL (4.30-5.90); RDW 12.8 % (11.5-15.5); WBC 7.7 k/uL (3.8-10.6)
[2023-11-09 09:12] LABS: INR 0.9 (<1.2); Partial Thromboplastin Time 25.3 sec (22.0-30.0); Prothrombin Time 10.3 sec (10.0-12.5)
--- NOTE | 2023-11-09 09:20 | XR ---
EXAMINATION TYPE: XR chest 2V DATE OF EXAM: 11/09/2023 9:06 AM CLINICAL INDICATION:Male, 53 years old with history of sob; COMPARISON: Chest radiographs from 11/26/2021 TECHNIQUE: XR chest 2V Frontal and lateral views of the chest. FINDINGS: Lungs/Pleura: There is no evidence of pleural effusion, focal consolidation, or pneumothorax. Pulmonary vascularity: Unremarkable. Heart/mediastinum: Cardiomediastinal silhouette is unremarkable. Musculoskeletal: No acute osseous pathology. IMPRESSION: No acute cardiopulmonary disease/process.
[2023-11-09 09:55] VITALS: PULSE 92
--- NOTE | 2023-11-09 10:04 | US ---
EXAMINATION TYPE: US gallbladder DATE OF EXAM: 11/09/2023 COMPARISON: NONE CLINICAL INDICATION: Male, 53 years old with history of pain; RUQ pain. TECHNIQUE: Multiple sonographic images of the right upper quadrant are obtained. FINDINGS: EXAM MEASUREMENTS: Liver Length: 19.6 cm Gallbladder Wall: .2 cm CBD: .5 cm Right Kidney: 10.7 x 4.9 x 5.7 cm Call Or Contact Centre Manager notes: Exam limited due to body habitus Pancreas: Obscured by bowel gas Liver: Echogenic and attenuating. This secondarily limits assessment for focal lesions. Gallbladder: No stones or abnormal distention. Evidence for sonographic Strickland's sign: No CBD: Limited due to bowel gas. Estimated at 5 mm. Right Kidney: No hydronephrosis or masses seen IMPRESSION: 1. Hepatomegaly at 19.6 cm with severe hepatic steatosis. Appropriate clinical management is advised. 2. No gallstones or biliary ductal dilatation.
--- NOTE | 2023-11-09 10:49 | ED ---
Abdominal Pain HPI - General Chief Complaint: Abdominal Pain Stated Complaint: Rib pain Time Seen by Provider: 11/09/23 08:06 Source: patient, RN notes reviewed Mode of arrival: ambulatory Limitations: no limitations - History of Present Illness Initial Comments: 53-year-old male presents emergency department with chief complaint of right- sided rib pain. Patient states that pain has become more severe since the weekend he was recently seen here CT no acute findings. Patient states that he has spasms, is increasing cough, shortness of breath. Patient states that his cough is productive with phlegm and states that it hurts when it spasms. He has no lower abdominal pain reports fevers, chills patient denies any other associated symptoms. - Related Data Home Medications Medication Instructions Recorded Confirmed Omeprazole 40 mg PO DAILY 05/06/23 05/06/23 amLODIPine [Norvasc] 5 mg PO DAILY 05/06/23 05/06/23 Previous Rx's Medication Instructions Recorded Azithromycin [Zithromax Z Pack] 0 tab PO DIRECTED #6 tab 11/09/23 Cyclobenzaprine [Flexeril] 10 mg PO TID PRN #15 tab 11/09/23 HYDROcodone/APAP 7.5-325MG [[place] 1 tab PO Q6HR PRN 3 Days #12 tab 11/09/23 7.5-325] predniSONE 50 mg PO DAILY #5 tab 11/09/23 Allergies Allergy/AdvReac Type Severity Reaction Status Date / Time [place] Allergy Swelling Uncoded 05/09/23 14:32 Review of Systems ROS Statement: Those systems with pertinent positive or pertinent negative responses have been documented in the HPI. ROS Other: All systems not noted in ROS Statement are negative. Past Medical History Past Medical History: Asthma, GERD/Reflux, Hypertension, Pneumonia, Sleep Apnea/CPAP/BIPAP Additional Past Medical History / Comment(s): Lung Condition - in [place]; hx anemia., DDD, NT hands/feet often, environmental allergies, hiatal hernia, rectal irritation, arthritis in back, uses CPAP. Hx Covid x3, tinnitus History of Any Multi-Drug Resistant Organisms: None Reported Past Surgical History: No Surgical Hx Reported Additional Past Surgical History / Comment(s): EGD, Colonoscopy Past Anesthesia/Blood Transfusion Reactions: No Reported Reaction Past Psychological History: Anxiety, Depression, PTSD Smoking Status: Never smoker Past Alcohol Use History: Daily Past Drug Use History: None Reported - Past Family History Father Family Medical History: Cancer Additional Family Medical History / Comment(s): pancreas cancer; skin cancer General Exam Limitations: no limitations General appearance: alert, in no apparent distress Head exam: Present: atraumatic, normocephalic, normal inspection Eye exam: Present: normal appearance, PERRL, EOMI. Absent: scleral icterus, conjunctival injection, periorbital swelling ENT exam: Present: normal exam, mucous membranes moist Neck exam: Present: normal inspection. Absent: tenderness, meningismus, lymphadenopathy Respiratory exam: Present: wheezes, rhonchi, chest wall tenderness. Absent: normal lung sounds bilaterally, respiratory distress, rales, stridor Cardiovascular Exam: Present: normal rhythm, tachycardia, normal heart sounds. Absent: systolic murmur, diastolic murmur, rubs, gallop, clicks GI/Abdominal exam: Present: soft, tenderness, normal bowel sounds. Absent: distended, guarding, rebound, rigid Course Vital Signs 11/09/23 11/09/23 11/09/23 08:04 08:35 08:44 Temperature 98.3 F Pulse Rate 111 H 93 93 Respiratory 18 Rate Blood Pressure 168/109 O2 Sat by Pulse 96 Oximetry 11/09/23 11/09/23 09:18 11:07 Temperature Pulse Rate 92 92 Respiratory 18 18 Rate Blood Pressure 143/100 148/94 O2 Sat by Pulse 95 96 Oximetry Medical Decision Making - Medical Decision Making Was pt. sent in by a medical professional or institution (, PA, ETL ANALYST, urgent care, hospital, or care home...) When possible be specific @ -No Did you speak to anyone other than the patient for history (EMS, parent, family, police, friend...)? What history was obtained from this source @ -No Did you review nursing and triage notes (agree or disagree)? Why? @ -I reviewed and agree with nursing and triage notes Were old charts reviewed (outside hosp., previous admission, EMS record, old EKG, old radiological studies, urgent care reports/EKG's, care home records)? Report findings @ -Reviewed CT from prior ER visit along with CBC and comp Differential Diagnosis (chest pain, altered mental status, abdominal pain women, abdominal pain men, vaginal bleeding, weakness, fever, dyspnea, syncope, headache, dizziness, GI bleed, back pain, seizure, CVA, palpatations, mental health, musculoskeletal)? @ -Differential Abdominal Pain Men: Appendicitis, cholecystitis, diverticulosis, ischemic bowel, pancreatitis, hepatitis, UTI, gastroenteritis, AAA, incarcerated hernia, bowel obstruction, constipation, inflammatory bowel, hepatitis, peptic ulcer disease, splenic infarction, perforated viscus, testicular torsion, this is not meant to be an all-inclusive list EKG interpreted by me (3pts min.). @ -As above X-rays interpreted by me (1pt min.). @ -Chest x-ray shows mild haziness possible early pneumonia CT interpreted by me (1pt min.). @ -None done U/S interpreted by me (1pt. min.). @ -[Ultrasound gallbladder shows no acute process What testing was considered but not performed or refused? (CT, X-rays, U/S, labs)? Why? @ -None What meds were considered but not given or refused? Why? @ -None Did you discuss the management of the patient with other professionals (professionals i.e. , PA, ETL ANALYST, lab, RT, psych nurse, social psychologist, lawyers, teacher, chief information security officer, watch case polisher)? Give summary @ -No Was smoking cessation discussed for >3mins.? @ -No Was critical care preformed (if so, how long)? @ -No Were there social determinants of health that impacted care today? How? (Homelessness, low income, unemployed, alcoholism, drug addiction, transportation, low edu. Level, literacy, decrease access to med. care, detention, rehab)? @ -No Was there de-escalation of care discussed even if they declined (Discuss DNR or withdrawal of care, Hospice)? DNR status @ -No What co-morbidities impacted this encounter? (DM, HTN, Smoking, COPD, CAD, Cancer, CVA, ARF, Chemo, Hep., AIDS, mental health diagnosis, sleep apnea, morbid obesity)? @ -None Was patient admitted / discharged? Hospital course, mention meds given and route, prescriptions, significant lab abnormalities, going to OR and other pertinent info. @ -Discharge patient does feel improved this time. Patient has concerning signs for early pneumonia patient was given antibiotics, steroids, analgesics. Patient does have right-sided chest wall pain consistent with pleurisy, costochondritis. Patient offered admission patient declines. Undiagnosed new problem with uncertain prognosis? @ -No Drug Therapy requiring intensive monitoring for toxicity (Heparin, Nitro, Insulin, Cardizem)? @ -No Were any procedures done? @ -No Diagnosis/symptom? @ -Pneumonia, costochondritis, pleurisy Acute, or Chronic, or Acute on Chronic? @ -Acute Uncomplicated (without systemic symptoms) or Complicated (systemic symptoms)? @ -Complicated Side effects of treatment? @ -No Exacerbation, Progression, or Severe Exacerbation? @ -No Poses a threat to life or bodily function? How? (Chest pain, [place], [place], pneumonia, PE, COPD, DKA, ARF, appy, cholecystitis, CVA, Diverticulitis, Homicidal, Suicidal, threat to staff... and all critical care pts) @ -No - Lab Data Result diagrams: 11/09/23 08:23 11/09/23 08:23 Lab Results 11/09/23 11/09/23 11/09/23 Range/Units 08:23 08:23 08:23 WBC 7.7 (3.8-10.6) k/uL RBC 4.54 (4.30-5.90) m/uL Hgb 13.8 (13.0-17.5) gm/dL Hct 42.7 (39.0-53.0) % MCV 94.0 (80.0-100.0) fL MCH 30.4 (25.0-35.0) pg MCHC 32.4 (31.0-37.0) g/dL RDW 12.8 (11.5-15.5) % Plt Count 313 (150-450) k/uL MPV 7.6 Neutrophils % 69 % Lymphocytes % 19 % Monocytes % 8 % Eosinophils % 2 % Basophils % 0 % Neutrophils # 5.3 (1.3-7.7) k/uL Lymphocytes # 1.5 (1.0-4.8) k/uL Monocytes # 0.6 (0-1.0) k/uL Eosinophils # 0.1 (0-0.7) k/uL Basophils # 0.0 (0-0.2) k/uL PT 10.3 (10.0-12.5) sec INR 0.9 (<1.2) APTT 25.3 (22.0-30.0) sec D-Dimer 0.56 (<0.60) mg/L FEU Sodium 137 (137-145) mmol/L Potassium 4.3 (3.5-5.1) mmol/L Chloride 104 (98-107) mmol/L Carbon Dioxide 26 (22-30) mmol/L Anion Gap 7 mmol/L BUN 10 (9-20) mg/dL Creatinine 0.81 (0.66-1.25) mg/dL Est GFR (CKD-EPI)AfAm >90 (>60 ml/min/1.73 sqM) Est GFR (CKD-EPI)NonAf >90 (>60 ml/min/1.73 sqM) Glucose 125 H (74-99) mg/dL Plasma Lactic Acid Shaka (0.7-2.0) mmol/L Calcium 9.8 (8.4-10.2) mg/dL Total Bilirubin 1.0 (0.2-1.3) mg/dL AST 27 (17-59) U/L ALT 41 (4-49) U/L Alkaline Phosphatase 80 (38-126) U/L Troponin I (0.000-0.034) ng/mL Total Protein 7.3 (6.3-8.2) g/dL Albumin 4.4 (3.5-5.0) g/dL Lipase 83 (23-300) U/L 11/09/23 11/09/23 Range/Units 08:23 08:23 WBC (3.8-10.6) k/uL RBC (4.30-5.90) m/uL Hgb (13.0-17.5) gm/dL Hct (39.0-53.0) % MCV (80.0-100.0) fL MCH (25.0-35.0) pg MCHC (31.0-37.0) g/dL RDW (11.5-15.5) % Plt Count (150-450) k/uL MPV Neutrophils % % Lymphocytes % % Monocytes % % Eosinophils % % Basophils % % Neutrophils # (1.3-7.7) k/uL Lymphocytes # (1.0-4.8) k/uL Monocytes # (0-1.0) k/uL Eosinophils # (0-0.7) k/uL Basophils # (0-0.2) k/uL PT (10.0-12.5) sec INR (<1.2) APTT (22.0-30.0) sec D-Dimer (<0.60) mg/L FEU Sodium (137-145) mmol/L Potassium (3.5-5.1) mmol/L Chloride (98-107) mmol/L Carbon Dioxide (22-30) mmol/L Anion Gap mmol/L BUN (9-20) mg/dL Creatinine (0.66-1.25) mg/dL Est GFR (CKD-EPI)AfAm (>60 ml/min/1.73 sqM) Est GFR (CKD-EPI)NonAf (>60 ml/min/1.73 sqM) Glucose (74-99) mg/dL Plasma Lactic Acid Shaka 1.1 (0.7-2.0) mmol/L Calcium (8.4-10.2) mg/dL Total Bilirubin (0.2-1.3) mg/dL AST (17-59) U/L ALT (4-49) U/L Alkaline Phosphatase (38-126) U/L Troponin I <0.012 (0.000-0.034) ng/mL Total Protein (6.3-8.2) g/dL Albumin (3.5-5.0) g/dL Lipase (23-300) U/L - EKG Data EKG Comments: EKG performed at 8: 20 sinus tachycardia rate of 106 SC 171 QRS 97 QT/QTc 342/404 Disposition Clinical Impression: Pneumonia, Pleurisy, Costochondral pain Disposition: HOME SELF-CARE Condition: Stable Instructions (If sedation given, give patient instructions): Pleurisy (ED), Costochondritis (ED) Additional Instructions: Please return to the Emergency Department if symptoms worsen or any other concerns. Prescriptions: Cyclobenzaprine [Flexeril] 10 mg PO TID PRN #15 tab PRN Reason: Muscle Spasm HYDROcodone/APAP 7.5-325MG [[place] 7.5-325] 1 tab PO Q6HR PRN 3 Days #12 tab PRN Reason: Pain predniSONE 50 mg PO DAILY #5 tab Azithromycin [Zithromax Z Pack] 0 tab PO DIRECTED #6 tab Is patient prescribed a controlled substance at d/c from ED?: Yes When asked, does pt state using other controlled substances?: No If prescribed controlled substance>3 days was MAPS reviewed?: Prescribed <3 Days If opioid is for acute pain is fill amount 7 days or less?: Yes If Rx opioid, was Start Talking consent form obtained?: Yes Referrals: Justino Medina MD [Primary Care Provider] - 1-2 days Time of Disposition: 10:48
[2023-11-09] MEDS: cefTRIAXone IN SWFI 1,000 MG/10 ML SYRINGE IVP STA (11:02)
[2023-11-09] MEDS: methylPREDNISolone SOD SUCCI 125 MG/2 ML VIAL IV STA (11:02)
[2023-11-09 11:51] VITALS: BP 148/94
== END 2023-11-09 11:14 | disposition home or self-care (01) ==
LOC: EC 08:03
DX: J18.9 Pneumonia, unspecified organism (principal); R07.1 Chest pain on breathing; R00.0 Tachycardia, unspecified; R09.1 Pleurisy; Z88.8 Allergy status to other drugs, medicaments and biological substances
CPT/HCPCS: 99285; 96374; 96375; 96376; 36415; 94640; 93005; 85379; 80053; 83605; 83690; 84484; 85025; 85610; 85730; 71046; 76705; J2360; J2405; J0696; J1885; J1170; J2919

== ENCOUNTER → 2024-10-12 | Outpatient (CLI) | payer OTHER ==
--- NOTE | 2024-10-12 08:13 | US ---
EXAMINATION TYPE: US liver DATE OF EXAM: 10/12/2024 COMPARISON: 10/13/2023 CLINICAL INDICATION: Male, 54 years old with history of R74.01 ELEVATED LIVER ENZYMES; Hx Fatty liver , RUQ pressure, Weight gain x 1 yr, Nocturia with frequency, and fatigue. Daily alcohol use for 1 yea r TECHNIQUE: Grayscale and color Doppler imaging of the right upper quadrant was performed. FINDINGS: EXAM MEASUREMENTS: Liver Length: 17.5 cm Gallbladder Wall: 0.2 cm CBD: Unable to visualize cm Right Kidney: 14.1 x 6.3 x 4.6 cm WIRELESS CELLULAR TECHNICIAN NOTES: Pancreas: Tail obscured by overlying bowel gas Liver: Increased attenuation, decreased visualization of vessels suggestive of fatty infiltrate Gallbladder: wnl Evidence for sonographic Strickland's sign: No CBD: Obscured by overlying bowel gas Right Kidney: wnl The visualized portions of the pancreas are within normal limits. Diffusely increased echogenicity of the liver without surface nodularity or focal lesion identified. Borderline prominence of the liver. Gallbladder demonstrates no wall thickening, surrounding fluid or gallstones. Negative sonographic M urphy sign. Common bile duct is obscured by overlying bowel gas. Right kidney demonstrates no hydrone phrosis, shadowing calculus or solid mass. IMPRESSION: 1. No ultrasound evidence for acute process. 2. Severe hepatic steatosis. [facility], , 10/12/2024 8:11 AM
== END | disposition home or self-care (01) ==
LOC: RADUSWWP 07:40
PROVIDERS: ATTEND Family Medicine
DX: K76.0 Fatty (change of) liver, not elsewhere classified (principal); R74.01 Elevation of levels of liver transaminase levels
CPT/HCPCS: 76705